=== PATIENT | female | born 1975 | race African-American/Black ===

== ENCOUNTER 2024-11-24 05:06 | Emergency (ER) | payer MEDICAID ==
[~2024-11-24] VITALS: Ht 157.5 cm; Wt 55.0 kg
[2024-11-24 05:11] VITALS: TEMP 37; O2SAT 100
[2024-11-24] MEDS: IBUPROFEN 600MG TABLET PO ONE (06:30)
[2024-11-24 07:42] VITALS: BP 108/70; PULSE 64; RESP 18; O2SAT 100
[2024-11-24] MEDS ORDERED: KETO10TA2 MT (10:16)
== END 2024-11-24 11:07 | disposition home or self-care (01) ==
LOC: ER 05:06
DX: M25.512 Pain in left shoulder (principal); M25.551 Pain in right hip; J45.909 Unspecified asthma, uncomplicated; Z88.1 Allergy status to other antibiotic agents
CPT/HCPCS: 72170; 73030; 81025; 99284